=== PATIENT | male | born 1965 | race Two or more races ===

== ENCOUNTER 2019-09-30 07:39 | Emergency (ER) | payer OTHER ==
[~2019-09-30] VITALS: Ht 157.5 cm; Wt 78.0 kg
--- NOTE | 2019-09-30 07:54 | NUR ---
THIS IS A 54 YO M W/ C/O DUFF SINCE YESTERDAY. PT ALSO REPORTS EPISODE OF FEVER AND CHILLS YESTERDAY BUT HAS RESOLVED TODAY. PT REPORTS DUFF 09/02 FROM TOP OF HEAD. PT DENIES N/V/PHOTOSENSITIVITY. PT DENIES MEDICAL HX AND HOME MEDS. DENIES HX OF SAME. PT RESTING ON GURNEY W/ CALL LIGHT IN REACH AND SIDE RAILS UP X2. PA STUDENT AT BEDSIDE FOR ED EVAL. PT DENIES FURTHER NEEDS AT THIS TIME.
[2019-09-30] MEDS ORDERED: SODIUM CHLORIDE FLUSH 10ML SYR IVF ONE (08:30)
[2019-09-30] MEDS ORDERED: KETOROLAC 30 MG/1 ML IVPush ONE (08:30)
[2019-09-30] MEDS ORDERED: DIPHENHYDRAMINE 50 MG/ML, 1ML IVPush ONE (08:30)
[2019-09-30] MEDS ORDERED: PROCHLORPERAZINE 5 MG/ML, 2ML IVPush ONE (08:30)
[2019-09-30] MEDS ORDERED: SODIUM CHLORIDE 0.9% 1,000ML IVBOLUS ONE (08:30)
[2019-09-30] MEDS ORDERED: DIPHENHYDRAMINE 50 MG/ML, 1ML ONE (08:35)
[2019-09-30] MEDS ORDERED: PROCHLORPERAZINE 5 MG/ML, 2ML ONE (08:35)
[2019-09-30] MEDS ORDERED: KETOROLAC 30 MG/1 ML ONE (08:35)
--- NOTE | 2019-09-30 09:16 | NUR ---
PT REPORTS RELIEF OF PAIN W/ MEDS. PT RESTING ON GURNEY W/ CALL LIGHT IN REACH AND SIDE RAILS UPX2. VSS, KAREN. PT UP FOR RECHECK AT THIS TIME.
[2019-09-30 09:17] VITALS: BP 132/107
--- NOTE | 2019-09-30 09:46 | NUR ---
Patient given discharge instructions and they have confirmed that they understand the instructions. Patient ambulatory with steady gait.
== END 2019-09-30 09:47 | disposition home or self-care (01) ==
LOC: ED 08:25
DX: R51 Headache (principal); H53.8 Other visual disturbances; R50.9 Fever, unspecified
CPT/HCPCS: 96361; 96374; 96375; 99284; J0780; J1200; J1885; J7030

== ENCOUNTER 2019-10-05 18:15 | Inpatient (IN) | payer OTHER ==
[~2019-10-05] VITALS: Ht 162.6 cm; Wt 82.7 kg
[2019-10-05] MEDS ORDERED: ASPIRIN 81 MG TABLET CHEW PO ONE (18:30)
[2019-10-05] MEDS ORDERED: SODIUM CHLORIDE FLUSH 10ML SYR IVF ONE (18:30)
--- NOTE | 2019-10-05 18:30 | NUR ---
RAIL SPECIALIST [id number]
[2019-10-05 19:01] LABS: BASOPHILS # (AUTO) 0.01 x10^3/uL (0-0.1); BASOPHILS % (AUTO) 0 % (0-1); EOSINOPHILS # (AUTO) 0.01 x10^3/uL (0-0.4); EOSINOPHILS % (AUTO) 0 % (1-7); LYMPHOCYTES # (AUTO) 0.67 x10^3/uL (1-3.4); LYMPHOCYTES % (AUTO) 8 % (22-44); MD NO; MEAN CORPUSCULAR HEMOGLOBIN 30.6 pg (27.5-34.5); MEAN CORPUSCULAR HGB CONC 33.8 g/dL (33.2-36.2); MEAN CORPUSCULAR VOLUME 90.5 fL (81-97); MEAN PLATELET VOLUME 8.6 fL (7.4-10.4); MONOCYTES # (AUTO) 0.46 x10^3/uL (0.2-0.8); MONOCYTES % (AUTO) 5 % (2-9); NEUTROPHILS # (AUTO) 7.48 x10^3/uL (1.8-6.8); NEUTROPHILS % (AUTO) 87 % (42-75); PLATELET COUNT 174 x10^3/uL (130-400); RED BLOOD COUNT 4.81 x10^6/uL (4.38-5.82); RED CELL DISTRIBUTION WIDTH 12.7 % (9.4-14.8)
[2019-10-05 19:07] LABS: ALANINE AMINOTRANSFERASE 39 U/L (12-78); ALBUMIN 3.1 g/dL (3.4-5.0); ANION GAP 7 mmol/L (5-15); CALCIUM 8.3 mg/dL (8.5-10.1); CHLORIDE 105 mmol/L (98-107); CREATININE 1.08 mg/dL (0.7-1.3)
[2019-10-05 19:12] LABS: ALKALINE PHOSPHATASE 92 U/L (45-117); BILIRUBIN,TOTAL 0.4 mg/dL (0.2-1.0); TOTAL PROTEIN 7.2 g/dL (6.4-8.2); TROPONIN I < 0.015 ng/mL (0.000-0.045)
--- NOTE | 2019-10-05 19:53 | NUR ---
PT TO ROOM FROM LOBBY
[2019-10-05] MEDS ORDERED: ASPIRIN 81 MG TABLET CHEW ONE (20:19)
--- NOTE | 2019-10-05 20:42 | NUR ---
PT RESTING IN BED, PT CONECTED TO MONITOR. STOGY MAKER WILL CONTINUE TO MONITOR PT VSS. PT MEDICATED PER EMAR
[2019-10-05] MEDS ORDERED: SODIUM CHLORIDE 0.9% 1,000ML IVBOLUS ONE (21:30)
[2019-10-05] MEDS ORDERED: CEFTRIAXONE PMX 1GM/50ML 50 ML IVPB ONE (21:30)
[2019-10-05] MEDS ORDERED: AZITHROMYCIN 500 MG in SODIUM CHLORIDE 0.9% 250 ML IV ONE (21:30)
[2019-10-05] MEDS: AMPICILLIN/SULBACTAM 3 GM in SODIUM CHLORIDE 0.9% 100 ML IV SCH (22:00)
[2019-10-05] MEDS: HEPARIN 5,000 UNITS/ML, 1ML SQ SCH (22:00)
[2019-10-05] MEDS ORDERED: CEFTRIAXONE PMX 1GM/50ML 50 ML ONE (22:32)
--- NOTE | 2019-10-05 22:44 | NUR ---
TASK RN: PT MEDICATED FOR ABD PAIN PER EMAR. ANTIBIOTICS STARTED AFTER BLOOD CULTURES DRAWN X 2
[2019-10-05] MEDS ORDERED: ACETAMINOPHEN 325 MG TABLET ONE (22:48)
[2019-10-05] MEDS: ACETAMINOPHEN 325 MG TABLET PO PRN (22:49)
--- NOTE | 2019-10-05 22:50 | NUR ---
TASK RN: PT MEDICATED FOR FEVER PER EMAR. COOLING MEASURES IN PLACE.
[2019-10-05 22:53] LABS: HCT (SEDRATE) 49.7 % (39.2-51.8)
[2019-10-06 03:12] VITALS: BP 119/75
[2019-10-06] MEDS: AMPICILLIN/SULBACTAM 3 GM in SODIUM CHLORIDE 0.9% 100 ML IV SCH ×4 (04:03→22:02)
[2019-10-06] MEDS: HEPARIN 5,000 UNITS/ML, 1ML SQ SCH ×3 (05:17→22:03)
[2019-10-06 05:54] LABS: BASOPHILS # (AUTO) 0.01 x10^3/uL (0-0.1); BASOPHILS % (AUTO) 0 % (0-1); EOSINOPHILS # (AUTO) 0.04 x10^3/uL (0-0.4); EOSINOPHILS % (AUTO) 1 % (1-7); LYMPHOCYTES # (AUTO) 0.77 x10^3/uL (1-3.4); LYMPHOCYTES % (AUTO) 8 % (22-44); MD NO; MEAN CORPUSCULAR HEMOGLOBIN 29.9 pg (27.5-34.5); MEAN CORPUSCULAR VOLUME 90.8 fL (81-97); MEAN PLATELET VOLUME 8.4 fL (7.4-10.4); MONOCYTES # (AUTO) 0.67 x10^3/uL (0.2-0.8); MONOCYTES % (AUTO) 7 % (2-9); NEUTROPHILS # (AUTO) 8.13 x10^3/uL (1.8-6.8); NEUTROPHILS % (AUTO) 85 % (42-75); PLATELET COUNT 181 x10^3/uL (130-400); RED BLOOD COUNT 4.45 x10^6/uL (4.38-5.82); RED CELL DISTRIBUTION WIDTH 12.8 % (9.4-14.8)
[2019-10-06 05:56] LABS: ANION GAP 6 mmol/L (5-15); CALCIUM 7.9 mg/dL (8.5-10.1); CHLORIDE 109 mmol/L (98-107)
[2019-10-06 05:59] LABS: CREATININE 0.85 mg/dL (0.7-1.3)
[2019-10-06 07:51] VITALS: BP 115/73
[2019-10-06] MEDS: SENNA/DOCUSATE TABLET PO SCH (08:12)
[2019-10-06] MEDS: AZITHROMYCIN 250 MG TABLET PO SCH (08:12)
[2019-10-06] MEDS: GUAIFENESIN/DM 200-20MG, 10ML UDC PO PRN ×2 (13:17→20:27)
[2019-10-06 13:56] VITALS: BP 132/74
[2019-10-06 19:30] VITALS: BP 152/87
[2019-10-06] MEDS: ACETAMINOPHEN 325 MG TABLET PO PRN (20:26)
[2019-10-07 01:30] VITALS: BP 112/70
[2019-10-07] MEDS: AMPICILLIN/SULBACTAM 3 GM in SODIUM CHLORIDE 0.9% 100 ML IV SCH ×4 (03:49→21:55)
[2019-10-07] MEDS: HEPARIN 5,000 UNITS/ML, 1ML SQ SCH ×2 (05:17→14:39)
[2019-10-07] MEDS: GUAIFENESIN/DM 200-20MG, 10ML UDC PO PRN ×2 (05:20→13:37)
[2019-10-07] MEDS: ACETAMINOPHEN 325 MG TABLET PO PRN (05:20)
[2019-10-07 05:49] LABS: BASOPHILS % (AUTO) 0 % (0-1); EOSINOPHILS # (AUTO) 0.01 x10^3/uL (0-0.4); EOSINOPHILS % (AUTO) 0 % (1-7); LYMPHOCYTES # (AUTO) 1.04 x10^3/uL (1-3.4); LYMPHOCYTES % (AUTO) 9 % (22-44); MD NO; MEAN CORPUSCULAR HEMOGLOBIN 30.1 pg (27.5-34.5); MEAN CORPUSCULAR HGB CONC 32.8 g/dL (33.2-36.2); MEAN CORPUSCULAR VOLUME 91.7 fL (81-97); MEAN PLATELET VOLUME 8.3 fL (7.4-10.4); MONOCYTES # (AUTO) 0.78 x10^3/uL (0.2-0.8); MONOCYTES % (AUTO) 7 % (2-9); NEUTROPHILS % (AUTO) 85 % (42-75); PLATELET COUNT 212 x10^3/uL (130-400); RED BLOOD COUNT 4.61 x10^6/uL (4.38-5.82); RED CELL DISTRIBUTION WIDTH 13.1 % (9.4-14.8)
[2019-10-07 05:52] LABS: ANION GAP 4 mmol/L (5-15); CALCIUM 8.1 mg/dL (8.5-10.1); CHLORIDE 107 mmol/L (98-107); CREATININE 0.89 mg/dL (0.7-1.3)
[2019-10-07 07:16] VITALS: BP 113/74
[2019-10-07] MEDS: AZITHROMYCIN 250 MG TABLET PO SCH (08:09)
[2019-10-07] MEDS: SENNA/DOCUSATE TABLET PO SCH (08:10)
[2019-10-07 11:57] VITALS: BP 141/89
[2019-10-07] MEDS ORDERED: AZIT250T89 PO (12:09)
[2019-10-07] MEDS ORDERED: MELA5TAB14 PO (12:09)
[2019-10-07] MEDS ORDERED: AMPI3VIA IV (12:09)
[2019-10-07] MEDS ORDERED: GUAI5SYR PO (12:09)
[2019-10-07] MEDS ORDERED: ACET325T26 PO (12:09)
[2019-10-07] MEDS ORDERED: ZINC220C7 PO (12:09)
[2019-10-07] MEDS ORDERED: ASCO500T9 PO (12:09)
[2019-10-07] MEDS ORDERED: CHOL500045 PO (12:09)
[2019-10-07] MEDS ORDERED: TRAM50TA2 PO (12:09)
[2019-10-07] MEDS ORDERED: THIA100T67 PO (12:09)
[2019-10-07] MEDS ORDERED: ENOX40SY4 SQ (12:09)
[2019-10-07] MEDS: AZITHROMYCIN 500 MG TABLET PO SCH (13:37)
[2019-10-07] MEDS: ASCORBIC ACID 500 MG TABLET PO SCH ×2 (13:37→16:43)
[2019-10-07 14:53] VITALS: BP 143/87
[2019-10-07] MEDS ORDERED: NITROGLYCERIN 0.4 MG BOTTLE (25 TABS) SL PRN (15:00)
[2019-10-07] MEDS ORDERED: NITROGLYCERIN 0.4 MG/SPRAY SL PRN (15:00)
[2019-10-07] MEDS: DEXAMETHASONE 4 MG TABLET PO SCH (15:04)
[2019-10-07 15:29] LABS: TROPONIN I < 0.015 ng/mL (0.000-0.045)
[2019-10-07 21:37] LABS: TROPONIN I < 0.015 ng/mL (0.000-0.045)
[2019-10-07] MEDS: THIAMINE 100MG TABLET PO SCH (21:55)
[2019-10-07] MEDS: ENOXAPARIN 80 MG/0.8 ML SQ SCH (21:55)
[2019-10-07] MEDS: MELATONIN 5 MG TABLET PO PRN (21:59)
[2019-10-07 22:05] VITALS: BP 155/99
[2019-10-08] MEDS: GUAIFENESIN/DM 200-20MG, 10ML UDC PO PRN ×3 (01:52→15:44)
[2019-10-08 01:53] VITALS: BP 141/89
[2019-10-08 03:19] LABS: ALBUMIN 2.2 g/dL (3.4-5.0); ANION GAP 8 mmol/L (5-15); CALCIUM 8.3 mg/dL (8.5-10.1); CHLORIDE 108 mmol/L (98-107)
[2019-10-08 03:22] LABS: TROPONIN I < 0.015 ng/mL (0.000-0.045)
[2019-10-08 03:26] LABS: ALANINE AMINOTRANSFERASE 28 U/L (12-78); ALKALINE PHOSPHATASE 83 U/L (45-117); BILIRUBIN,TOTAL 0.4 mg/dL (0.2-1.0); CREATININE 1.02 mg/dL (0.7-1.3); TOTAL PROTEIN 6.7 g/dL (6.4-8.2)
[2019-10-08 03:27] LABS: MEAN CORPUSCULAR HEMOGLOBIN 30.2 pg (27.5-34.5); MEAN CORPUSCULAR HGB CONC 33.1 g/dL (33.2-36.2); MEAN CORPUSCULAR VOLUME 91.3 fL (81-97); MEAN PLATELET VOLUME 7.9 fL (7.4-10.4); PLATELET COUNT 261 x10^3/uL (130-400); RED BLOOD COUNT 4.86 x10^6/uL (4.38-5.82); RED CELL DISTRIBUTION WIDTH 12.9 % (9.4-14.8)
[2019-10-08 03:36] LABS: D-DIMER 0.85 ug/mlFEU (0.00-0.52)
[2019-10-08 04:18] LABS: BASOPHILS # (AUTO) 0.01 x10^3/uL (0-0.1); BASOPHILS % (AUTO) 0 % (0-1); EOSINOPHILS % (AUTO) 0 % (1-7); LYMPHOCYTES # (AUTO) 0.59 x10^3/uL (1-3.4); LYMPHOCYTES % (AUTO) 4 % (22-44); MD SCAN; MONOCYTES # (AUTO) 0.34 x10^3/uL (0.2-0.8); MONOCYTES % (AUTO) 2 % (2-9); NEUTROPHILS # (AUTO) 13.57 x10^3/uL (1.8-6.8); NEUTROPHILS % (AUTO) 94 % (42-75)
[2019-10-08] MEDS: AMPICILLIN/SULBACTAM 3 GM in SODIUM CHLORIDE 0.9% 100 ML IV SCH ×4 (04:31→21:16)
[2019-10-08] MEDS: ACETAMINOPHEN 325 MG TABLET PO PRN ×4 (04:43→23:28)
[2019-10-08 07:10] VITALS: BP 162/103
[2019-10-08] MEDS: SENNA/DOCUSATE TABLET PO SCH (09:15)
[2019-10-08] MEDS: DEXAMETHASONE 4 MG TABLET PO SCH (09:34)
[2019-10-08] MEDS: CHOLECALCIFEROL 5,000u TAB PO SCH (09:34)
[2019-10-08] MEDS: ASCORBIC ACID 500 MG TABLET PO SCH ×3 (09:34→15:44)
[2019-10-08] MEDS: ENOXAPARIN 80 MG/0.8 ML SQ SCH ×2 (09:34→21:16)
[2019-10-08] MEDS: THIAMINE 100MG TABLET PO SCH ×2 (09:34→20:09)
[2019-10-08] MEDS: AZITHROMYCIN 500 MG TABLET PO SCH (09:34)
[2019-10-08] MEDS: ZINC SULFATE 220 MG CAPSULE PO SCH (09:38)
[2019-10-08 09:40] VITALS: BP 164/105
[2019-10-08 12:52] VITALS: BP 170/107
[2019-10-08] MEDS: AMLODIPINE 5 MG TABLET PO SCH (14:29)
[2019-10-08] MEDS ORDERED: TOCILIZUMAB 400 MG in SODIUM CHLORIDE 0.9% 100 ML IVPB SCH (16:30)
[2019-10-08] MEDS ORDERED: REMDESIVIR 200 MG in SODIUM CHLORIDE 0.9% 250 ML IVPB ONE (16:30)
[2019-10-08] MEDS ORDERED: OMNIPAQUE 350 MG/ML, 100ML BOTTLE ONE (17:21)
[2019-10-08 19:17] VITALS: BP_SYST 166; BP_SYST 168; BP_DIAS 109; BP_DIAS 110
[2019-10-08] MEDS ORDERED: AMLODIPINE 5 MG TABLET PO ONE (19:30)
[2019-10-08] MEDS: TOCILIZUMAB 400 MG in SODIUM CHLORIDE 0.9% 100 ML IVPB SCH (20:09)
[2019-10-08] MEDS: MELATONIN 5 MG TABLET PO PRN (23:28)
[2019-10-09 01:06] VITALS: BP 130/69
[2019-10-09] MEDS: GUAIFENESIN/DM 200-20MG, 10ML UDC PO PRN ×3 (03:15→17:47)
[2019-10-09] MEDS: AMPICILLIN/SULBACTAM 3 GM in SODIUM CHLORIDE 0.9% 100 ML IV SCH ×3 (04:18→15:58)
[2019-10-09 06:46] LABS: INTERNATIONAL NORMALIZED RATIO 0.92 (0.93-1.1); PROTHROMBIN TIME 9.5 Seconds (9.6-11.5)
[2019-10-09 06:51] LABS: ALANINE AMINOTRANSFERASE 46 U/L (12-78); ALBUMIN 2.3 g/dL (3.4-5.0); ANION GAP 7 mmol/L (5-15); CALCIUM 9.2 mg/dL (8.5-10.1); CHLORIDE 109 mmol/L (98-107); CREATININE 0.84 mg/dL (0.7-1.3)
[2019-10-09 06:53] LABS: ALKALINE PHOSPHATASE 94 U/L (45-117); BILIRUBIN,TOTAL 0.5 mg/dL (0.2-1.0); MEAN CORPUSCULAR HEMOGLOBIN 30.3 pg (27.5-34.5); MEAN CORPUSCULAR HGB CONC 33.3 g/dL (33.2-36.2); MEAN PLATELET VOLUME 8.1 fL (7.4-10.4); PLATELET COUNT 280 x10^3/uL (130-400); RED BLOOD COUNT 5.15 x10^6/uL (4.38-5.82); RED CELL DISTRIBUTION WIDTH 12.9 % (9.4-14.8); TOTAL PROTEIN 6.7 g/dL (6.4-8.2)
[2019-10-09 07:09] VITALS: BP 133/81
[2019-10-09 07:30] LABS: MD YES
[2019-10-09 07:32] LABS: <PLATELET ESTIMATE> ADEQUATE; <RBC MORPHOLOGY> NORMAL; BAND#(MANUAL) 0.38 x10^3/uL; BANDS%(MANUAL) 2 % (0-7); LYMPH#(MANUAL) 0.58 x10^3/uL (1-3.4); LYMPHS% (MANUAL) 3 % (22-44); METAMYELOCYTES# (MANUAL) 0.38 x10^3/uL (0-0); METAMYELOCYTES% (MANUAL) 2 % (0-1); MONOS#(MANUAL) 0.19 x10^3/uL (0.3-2.7); MONOS% (MANUAL) 1 % (2-9); SEG#(MANUAL) 17.66 x10^3/uL (1.8-6.8); SEGS% (MANUAL) 92 % (42-75)
[2019-10-09 07:33] LABS: <PLT MORPHOLOGY> NORMAL PLT MORPH
[2019-10-09] MEDS ORDERED: AMLODIPINE 5 MG TABLET PO SCH (09:00)
[2019-10-09] MEDS: TOCILIZUMAB 400 MG in SODIUM CHLORIDE 0.9% 100 ML IVPB SCH (10:06)
[2019-10-09] MEDS: AMLODIPINE 5 MG TABLET PO SCH (10:07)
[2019-10-09] MEDS: SENNA/DOCUSATE TABLET PO SCH (10:07)
[2019-10-09] MEDS: DEXAMETHASONE 4 MG TABLET PO SCH (10:07)
[2019-10-09] MEDS: THIAMINE 100MG TABLET PO SCH (10:07)
[2019-10-09] MEDS: ACETAMINOPHEN 325 MG TABLET PO PRN ×2 (10:07→17:47)
[2019-10-09] MEDS: CHOLECALCIFEROL 5,000u TAB PO SCH (10:07)
[2019-10-09] MEDS: AZITHROMYCIN 500 MG TABLET PO SCH (10:07)
[2019-10-09] MEDS: ZINC SULFATE 220 MG CAPSULE PO SCH (10:07)
[2019-10-09] MEDS: ENOXAPARIN 80 MG/0.8 ML SQ SCH (10:08)
[2019-10-09] MEDS: ASCORBIC ACID 500 MG TABLET PO SCH ×3 (10:09→17:47)
[2019-10-09 14:09] VITALS: BP 131/82
[2019-10-09] MEDS ORDERED: AMLO-150 PO (14:28)
[2019-10-09] MEDS ORDERED: NITR12SP2 SL (14:28)
[2019-10-09] MEDS ORDERED: NITR0.4T28 SL (14:28)
[2019-10-09] MEDS ORDERED: DEXA4TAB66 PO (14:28)
[2019-10-09] MEDS ORDERED: ALPR0.5T6 PO (14:28)
[2019-10-09] MEDS ORDERED: ENOX80SY4 SQ (14:28)
[2019-10-09] MEDS ORDERED: SENN-193 PO (14:28)
[2019-10-09] MEDS ORDERED: [UNRECOGNIZED DRUG - OTHER] IV (14:28)
[2019-10-09] MEDS ORDERED: [UNRECOGNIZED DRUG - OTHER] IV (14:28)
[2019-10-09] MEDS ORDERED: SODIUM CHLORIDE 0.9%, 250ML IVBOLUS ONE (16:00)
[2019-10-09] MEDS ORDERED: SODIUM CHLORIDE 0.9% 1,000 ML IV SCH (16:00)
[2019-10-09] MEDS ORDERED: REMDESIVIR 100 MG in SODIUM CHLORIDE 0.9% 250 ML IVPB SCH (17:00)
== END 2019-10-09 20:45 | disposition short-term general hospital (02) | DRG 177 ==
LOC: ED 21:30 → EDIP 10-06 02:55 → 4EST 10-06 02:56
PROVIDERS: ADMIT Family Medicine; ATTEND Internal Medicine
PROC: XW033E5 Introduction of Remdesivir Anti-infective into Peripheral Vein, Percutaneous Approach, New Technology Group 5 (ICD-10-PCS; principal; 2019-10-05)
DX: U07.1 COVID-19 (principal); J12.89 Other viral pneumonia; J96.01 Acute respiratory failure with hypoxia; F41.9 Anxiety disorder, unspecified; I51.7 Cardiomegaly; R03.0 Elevated blood-pressure reading, without diagnosis of hypertension; D72.829 Elevated white blood cell count, unspecified; Z79.899 Other long term (current) drug therapy
CPT/HCPCS: 36415; 36600; 71045; 71275; 80048; 80053; 82728; 82803; 83605; 83615; 83880; 84145; 84484; 85025; 85379; 85384; 85610; 85651; 86140; 87040; 87635; 93005; 96374; 96375; 99285; G0378; J0295; J0456; J0696; J1644; J1650; Q9967; J3262; J7030; J7050

== ENCOUNTER 2020-06-12 15:43 | Emergency (ER) | payer MEDICAID, OTHER ==
[~2020-06-12] VITALS: Ht 160 cm; Wt 79.1 kg
[~2020-06-12 15:43] MED LIST: ACET325T26 PO; ALPR0.5T93 PO; AMLO-150 PO; AMPI3VIA IV; ASCO500T9 PO; AZIT250T89 PO; CHOL500045 PO; DEXA4TAB66 PO; ENOX40SY4 SQ; ENOX80SY4 SQ; GUAI5SYR PO; MELA5TAB14 PO; NITR0.4T28 SL; NITR12SP10 SL; SENN-193 PO; THIA100T67 PO; TRAM50TA2 PO; ZINC220C7 PO; [UNRECOGNIZED DRUG - OTHER] IV; [UNRECOGNIZED DRUG - OTHER] IV
[2020-06-12] MEDS ORDERED: LIDOCAINE-MPF 1%, 5ML INFIL ONE (16:00)
[2020-06-12] MEDS ORDERED: DIPH,PERTUSS(ACELL),TET VAC/PF 0.5 ML IM-VACC ONE ×3 (16:00→16:06)
--- NOTE | 2020-06-12 16:00 | NUR ---
LEFT HAND LAC, BLEEDING CONTROLLED. CMS INTACT. ERPA AT BEDSIDE FOR EVAL
[2020-06-12] MEDS ORDERED: LIDOCAINE-MPF 1%, 5ML ONE ×2 (16:05→16:08)
[2020-06-12 16:13] VITALS: BP 156/97
--- NOTE | 2020-06-12 16:27 | NUR ---
EMT AT BEDSIDE CLEANING WOUND
--- NOTE | 2020-06-12 16:53 | NUR ---
ERMD LAW AT BEDSIDE TO DISCUSS POC
[2020-06-12] MEDS ORDERED: NEOSPORIN OINT. PKT 1 PACKET ONE (16:59)
--- NOTE | 2020-06-12 17:20 | NUR ---
dischrage instructions reviewed, pt verbalized understanding
== END 2020-06-12 17:22 | disposition home or self-care (01) ==
LOC: ED 17:00
DX: S61.211A Laceration without foreign body of left index finger without damage to nail, initial encounter (principal); W26.0XXA Contact with knife, initial encounter; Y93.89 Activity, other specified; Y92.009 Unspecified place in unspecified non-institutional (private) residence as the place of occurrence of the external cause; Y99.8 Other external cause status
CPT/HCPCS: 12042; 90471; 90715; 99284

== ENCOUNTER 2020-07-04 08:14 | Emergency (ER) | payer MEDICAID ==
[~2020-07-04] VITALS: Ht 162.6 cm; Wt 78.4 kg
[2020-07-04 08:26] VITALS: BP 169/103
[2020-07-04] MEDS ORDERED: TRIAMCINOLONE ACETONIDE 40 MG/ML, 1ML IM ONE (09:00)
== END 2020-07-04 09:36 | disposition home or self-care (01) ==
LOC: ED 08:48
DX: L30.9 Dermatitis, unspecified (principal); T78.49XA Other allergy, initial encounter
CPT/HCPCS: 96372; 99283; J3301

== ENCOUNTER 2020-10-21 15:03 | Emergency (ER) | payer MEDICAID ==
[~2020-10-21] VITALS: Ht 160 cm; Wt 79.4 kg
[2020-10-21 15:37] VITALS: BP 148/103
[2020-10-21] MEDS ORDERED: FLUORESCEIN OPHTHALMIC 1 MG STRIP EACHEYE ONE (16:00)
[2020-10-21] MEDS ORDERED: PLEASE ENTER HEIGHT AND WEIGHT MC SCH (16:00)
[2020-10-21] MEDS ORDERED: PROPARACAINE OPHTH 0.5%, 15ML EACHEYE ONE (16:00)
[2020-10-21] MEDS ORDERED: FLUORESCEIN OPHTHALMIC 1 MG STRIP ONE ×2 (16:04→16:08)
[2020-10-21] MEDS ORDERED: PROPARACAINE OPHTH 0.5%, 15ML ONE (16:04)
--- NOTE | 2020-10-21 17:29 | NUR ---
Patient/Caregiver given discharge instructions and they have confirmed that they understand the instructions. Patient ambulatory with steady gait. NAD, all questions answered appropriately, denies additional needs at this time. No personal belongings left in room after discharge.
== END 2020-10-21 18:10 | disposition home or self-care (01) ==
LOC: ED 18:08
DX: T78.49XA Other allergy, initial encounter (principal); H10.13 Acute atopic conjunctivitis, bilateral; R21 Rash and other nonspecific skin eruption; X58.XXXA Exposure to other specified factors, initial encounter
CPT/HCPCS: 99283